=== PATIENT | male | born 1990 | race African-American/Black ===

== ENCOUNTER 2017-01-28 14:33 | Emergency (ER) | payer OTHER ==
[~2017-01-28] VITALS: Ht 190.5 cm; Wt 83.9 kg
[2017-01-28 14:52] VITALS: BP 161/80
--- NOTE | 2017-01-28 15:30 | NUR ---
Patient to bed 03.
--- NOTE | 2017-01-28 15:32 | NUR ---
26M BIB SELF C/O PRODUCTIVE COUGH X 4 DAYS; BL LUNG SOUNDS CLEAR, RR EVEN/UNLABORED AT THIS TIME; PT A&OX4, PERRLA, BL LUNG SOUNDS CLEAR, RR EVEN/UNLABORED, SKIN IS WARM/DRY/INTACT AT THIS TIME; PT DENIES PAIN, N/V/D AT THIS TIME; STEADY GAIT; PT RESTING IN BED W/ HOB ELEVATED AND IN LOWEST POSITION; POSITIONED FOR COMFORT; ER MD MADE AWARE OF STATUS. WILL CONTINUE TO MONITOR.
--- NOTE | 2017-01-28 15:34 | NUR ---
Dr. Mina evaluating patient at bedside.
[2017-01-28 15:45] VITALS: BP 123/67
--- NOTE | 2017-01-28 15:45 | NUR ---
Patient discharged with v/s stable. Written and verbal after care instructions given and explained. Patient alert, oriented and verbalized understanding of instructions. Ambulatory with steady gait. All questions addressed prior to discharge. ID band removed. Patient advised to follow up with PMD. Rx of ROBITUSSIN DM & ALBUTEROL 90MCG/ACTUATION given. Patient educated on indication of medication including possible reaction and side effects. Opportunity to ask questions provided and answered.
== END 2017-01-28 15:45 | disposition home or self-care (01) ==
LOC: MED 14:33
DX: J40 Bronchitis, not specified as acute or chronic (principal)
CPT/HCPCS: 99283

== ENCOUNTER 2017-02-02 08:44 | Emergency (ER) | payer OTHER ==
[~2017-02-02] VITALS: Ht 190.5 cm; Wt 83.9 kg
[2017-02-02 08:51] VITALS: BP 117/70
--- NOTE | 2017-02-02 08:56 | NUR ---
Patient ambulated to bed 4. RN evaluating patient at bedside.
--- NOTE | 2017-02-02 09:05 | NUR ---
DR GO AT BEDSIDE.
--- NOTE | 2017-02-02 09:08 | NUR ---
PT CAME HERE TO ER DUE TO COUGH X3 WEEKS;PT STATES HE IS WORRIED BECAUSE HE HAS BABY AT HOME AND HE MIGHT INFECTS HER;PT CAN NOT SLEEP AT NIGHT DUETO CONGESTION AND COUGHING;DENIES CP/SOB/N/V/F AT THIS TIME;DENIES ANY PAIN;HX OF BRONCHITIS AND ASTHMA.AAOX4;NO ACUTE DISTRESS NOTED;NEEDS ATTENDED;SAFETY MEASURES DONE;POSITIONED FOR COMFORT.
[2017-02-02 09:28] VITALS: BP 127/62
--- NOTE | 2017-02-02 09:28 | NUR ---
Patient discharged with v/s stable. Written and verbal after care instructions given and explained. Patient alert, oriented and verbalized understanding of instructions. Ambulatory with steady gait. All questions addressed prior to discharge. ID band removed. Patient advised to follow up with PMD. Rx of DEXTROMETHORPHAN,CLARITIN,PREDNISONE given. Patient educated on indication of medication including possible reaction and side effects. Opportunity to ask questions provided and answered.
== END 2017-02-02 09:28 | disposition home or self-care (01) ==
LOC: MED 09:00
DX: J45.909 Unspecified asthma, uncomplicated (principal)